=== PATIENT | male | born 1965 | race Caucasian/White ===

== ENCOUNTER 2016-12-27 23:45 | Emergency (ER) | payer BC ==
[~2016-12-27] VITALS: Ht 165.1 cm; Wt 114.5 kg
[2016-12-27 23:45] VITALS: TEMP 36.9; O2SAT 95; Ht 165.1 cm; Wt 114.5 kg
[~2016-12-27 23:45] MED LIST: BNC/4025 PO; FURO-85 PO; GEMF600T3 PO; LEVO150T PO; METO25TA3 PO; MINO1TAB PO
[2016-12-28] MEDS ORDERED: KETOROLAC TROMETHAMINE 30 MG/ML VIAL IV STA (00:13)
--- NOTE | 2016-12-28 00:20 | EMERGENCY ROOM VISIT NOTE ---
History Report prepared by Marcellus: Lyric Hoffmann Under the Supervision of: Dr. Tonie Paz D.O. First contact with patient: 23:51 Chief Complaint: CHEST PAIN Stated Complaint: CHEST PAIN Nursing Triage Summary: Pt arrived via ALS EMS from [facility]. Pt at work when he developed sudden onset, left sided chest tightness that radiated into left arm and created a "numbness". Pt describes pain as a "spasm". Rated 10/10. Pt also reported to be flushed and clammy. No SOB. IV access obtained by EMS. 324 ASA given. Recent hospital admission to [place] for CHF. History of Present Illness The patient is a 51 year old male who presents to the Emergency Room via ALS with complaints of sudden left sided chest pain that began just prior to arrival. He initially rated his discomfort as a 10/10 in severity, but notes that it is now a 3/10 in severity. The patient states that he arrived at work this evening around 2230 and was getting ready to get some equipment. He states that he suddenly began experiencing left sided chest pain that radiated into his left shoulder and left arm. He describes his discomfort as a muscle spasm and aching discomfort. The patient states that his left arm hurts when he moves it. He additionally notes that he felt clammy during the incident. He denies doing anything strenuous prior to his pain beginning. The patient states that one month ago he was evaluated at [facility] for congestive heart failure. He states that he had 12 pounds of fluid taken off of his body. The patient states that he had increased leg edema at this time. He states that he was experiencing uncontrolled hypertension, noting that he was on the wrong blood pressure medications. The patient denies any previous LA. He states that he had an echocardiogram that was normal. The patient additionally notes that he had a stress test on the treadmill three weeks ago that was normal. He denies any history of diabetes. EMS reports that the patient was given 324 of aspirin prior to arrival. The patient denies any abdominal pain or current leg cramping or swelling. Source of History: patient Onset: prior to arrival Position: chest (left) Symptom Intensity: 3/10 Quality: ache, other (muscle spasm) Timing: other (sudden) Associated Symptoms: No abdominal pain Note: Associated Symptoms: clammy Review of Systems See HPI for pertinent positives & negatives. A total of 10 systems reviewed and were otherwise negative. Past Medical & Surgical Medical Problems: (1) Asthma (2) Bronchitis (3) CHF (congestive heart failure) (4) Heart disease (5) Hypertension (6) Kidney disease (7) Pneumonia Surgical Problems: (1) H/O hand surgery Family History Cancer Heart disease Hypertension Kidney disease Kidney stones Lung disease Social History Smoking Status: Never Smoker Smokeless Tobacco Use: Yes Alcohol Use: occasionally Drug Use: none Marital Status: Housing Status: lives with significant other Occupation Status: employed Current/Historical Medications Scheduled Amlodipine (Norvasc), 10 MG PO DAILY Furosemide (Lasix), 20 MG PO DAILY Levothyroxine Sodium (Levothyroxine Sodium), 175 MCG PO DAILY Lisinopril (Zestril), 40 MG PO QPM Metoprolol Tartrate (Lopressor) (Lopressor), 50 MG PO BID Spironolactone (Aldactone), 25 MG PO DAILY Allergies Coded Allergies: No Known Allergies (Unverified , 12/28/16) Physical Exam Vital Signs Date Time Temp Pulse Resp B/P Pulse Ox O2 Delivery O2 Flow Rate FiO2 12/28/16 02:00 113/74 12/28/16 01:55 58 15 97 12/28/16 01:30 128/81 12/28/16 01:25 59 24 98 12/28/16 01:20 61 23 96 12/28/16 01:00 110/72 12/28/16 00:50 61 14 96 12/28/16 00:45 60 96 12/28/16 00:30 120/81 12/28/16 00:15 61 19 97 12/28/16 00:00 117/85 12/27/16 23:53 65 12/27/16 23:51 132/86 12/27/16 23:45 95 Room Air 12/27/16 23:45 36.9 64 14 153/103 95 Room Air 12/27/16 23:45 97 Room Air Physical Exam HEENT: Head - normocephalic and atraumatic Pupils are equal, round, and reactive to light. Extraocular eye muscles are intact, and sclera are anicteric. Nose - moist nasal mucosa without discharge. Mouth - moist buccal mucosa. Oropharynx is nonerythematous and there is no tonsillar exudate or edema noted. Neck: Supple; no JVD, nuchal rigidity, cervical lymphadenopathy. Heart: Regular rate and rhythm. There is a normal S1 and S2 with no murmurs, clicks, or gallops appreciated. Lungs: Clear to auscultation bilaterally with no wheezes, rales, or rhonchi. Abdomen: Soft, completely nontender, nondistended, with good bowel sounds. There are no palpable pulsatile masses or hepatosplenomegaly. There is no guarding, rigidity, or rebound noted. Extremities: No evidence of cyanosis, clubbing, or edema. There are easily palpable peripheral pulses. Skin: warm and dry with good turgor and no rashes. Medical Decision & Procedures ER Provider Diagnostic Interpretation: 1 view chest x-ray interpreted by me: narrow mediastinum, no cardiomegaly, no pulmonary infiltrates. Laboratory Results 12/27/16 23:53 12/27/16 23:53 Test 12/27/16 23:53 12/28/16 02:04 Red Blood Count 4.88 M/uL (4.7-6.1) Mean Corpuscular Volume 84.0 fL (80-100) Mean Corpuscular Hemoglobin 28.5 pg (25-34) Mean Corpuscular Hemoglobin Concent 33.9 g/dl (32-36) RDW Standard Deviation 40.4 fL (36.4-46.3) RDW Coefficient of Variation 13.2 % (11.5-14.5) Mean Platelet Volume 10.6 fL (7.4-10.4) Anion Gap 6.0 mmol/L (3-11) Est Creatinine Clear Calc Drug Dose 94.0 ml/min Estimated GFR () 90.2 Estimated GFR (Non- 77.9 BUN/Creatinine Ratio 16.7 (10-20) Calcium Level 9.0 mg/dl (8.5-10.1) Total Bilirubin 0.3 mg/dl (0.2-1) Direct Bilirubin < 0.1 mg/dl (0-0.2) Aspartate Amino Transf (AST/SGOT) 14 U/L (15-37) Alanine Aminotransferase (ALT/SGPT) 32 U/L (12-78) Alkaline Phosphatase 70 U/L (45-117) Total Protein 7.1 gm/dl (6.4-8.2) Albumin 3.9 gm/dl (3.4-5.0) Lipase 155 U/L (73-393) Bedside Troponin I 0.010 ng/ml (0-0.045) Laboratory results per my review. Medications Administered Medications (Trade) Dose Ordered Sig/Ubaldo Route Start Time Stop Time Status Last Admin Dose Admin Ketorolac Tromethamine (Toradol Inj) 30 mg NOW STAT IV 12/28/16 00:13 12/28/16 00:18 DC 12/28/16 00:31 30 MG ECG Indication: chest pain Rate (beats per minute): 69 Rhythm: normal sinus Findings: no acute ischemic change, no ectopy ED Course 0001: Past medical records reviewed. The patient was evaluated in room B4B. A complete history and physical exam was performed. An IV lock was initiated and labs are drones above. A twelve-lead EKG was obtained as described above. Patient had a portable chest x-ray as described above. 0013: Ordered Toradol Inj 30 mg IV. 0109: I reevaluated the patient and he is feeling fine. He has had no recurrence of his chest discomfort. He is going to have a repeat troponin ran at 0200. 0218: I reevaluated the patient and he is resting comfortably. I discussed all the exam findings with him and I discussed the treatment plan. He verbalized complete understanding and agreement. He is ready to go home. Medical Decision The patient is a 51 year old male who presents to the ED with left sided chest pain. Differential diagnosis includes recurrent congestive heart failure, acute coronary syndrome, STEMI, costochondritis, GERD Lab interpretation: point of care troponin 0, normal lipase and LFTs, normal glucose and renal function, no leukocytosis, stable H&H. Repeat point of care troponin 0.01. This is a 51-year-old male who presents to the emergency department with a sudden onset of left-sided chest wall pain that seemed to radiate through to his shoulder and left scapula. The patient describes pain as worsening with movement of that left arm and shoulder. The patient did have some reproducible discomfort with palpation over the medial aspect of the left scapula. The patient had a recent cardiac stress test which was negative. He has an EKG today that is normal. 2 troponins were within the normal range. The patient was told to follow-up with his home care companion on Saturday if the symptoms persist. If symptoms worsen, he can return here to the emergency department Impression Primary Impression: Left-sided chest wall pain Scribe Attestation The scribe's documentation has been prepared under my direction and personally reviewed by me in its entirety. I confirm that the note above accurately reflects all work, treatment, procedures, and medical decision making performed by me. Departure Information Dispostion Home / Self-Care Referrals No Doctor, Assigned (PCP) Forms HOME CARE DOCUMENTATION FORM, IMPORTANT VISIT INFORMATION Patient Instructions ED Chest Pain Atypical Unkn Cause, My [facility] Additional Instructions Rest. Limit strenuous activity or use of the left arm. Motrin - 800mg every 6 hours with food for pain as needed over 2 days Follow up with cardiology on Saturday if symptoms persist If symptoms worsen, return to the ER
[2016-12-28 00:25] LABS: MEAN CORPUSCULAR HEMOGLOBIN 28.5 pg (25-34); MEAN CORPUSCULAR HGB CONC 33.9 g/dl (32-36); MEAN PLATELET VOLUME 10.6 fL (7.4-10.4); PLATELET COUNT 253 K/uL (130-400); RED BLOOD COUNT 4.88 M/uL (4.7-6.1); WHITE BLOOD COUNT 10.66 K/uL (4.8-10.8)
[2016-12-28 00:43] LABS: ALT/SGPT 32 U/L (12-78); AST/SGOT 14 U/L (15-37); BLOOD UREA NITROGEN 18 mg/dl (7-18); BUN/CREATININE RATIO 16.7 (10-20); CARBON DIOXIDE 29 mmol/L (21-32); CHLORIDE 106 mmol/L (98-107); GLUCOSE 106 mg/dl (70-99); POTASSIUM 3.9 mmol/L (3.5-5.1); SODIUM 141 mmol/L (136-145)
[2016-12-28] MEDS ORDERED: LEVO175T3 PO (00:43)
[2016-12-28] MEDS ORDERED: LISI40TA PO (00:44)
[2016-12-28 00:45] LABS: ALKALINE PHOSPHATASE 70 U/L (45-117)
[2016-12-28] MEDS ORDERED: AMLO-114 PO (00:45)
[2016-12-28] MEDS ORDERED: SPIR25TA PO (00:46)
[2016-12-28] MEDS ORDERED: METO50TA16 PO (00:49)
[2016-12-28 01:55] VITALS: PULSE 58; O2SAT 97
[2016-12-28 02:00] VITALS: BP 113/74
--- NOTE | 2016-12-28 07:05 | DIAGNOSTIC IMAGING REPORT ---
CHEST ONE VIEW PORTABLE CLINICAL HISTORY: Left-sided chest pain. COMPARISON STUDY: Chest radiograph November 16, 2012. FINDINGS: Lung volumes are normal. There is no pneumothorax or pleural effusion. Lungs are clear. Cardiac size is normal. Mediastinal contours are normal. There is no evidence of pulmonary edema. IMPRESSION: No acute cardiopulmonary findings. Electronically signed by: Paul Carpenter M.D. 12/28/2016 7:03 AM Dictated Date/Time: 12/28/2016 7:03 AM
== END 2016-12-28 02:24 | disposition home or self-care (01) ==
LOC: EDBD 23:45 → C.EDB 23:46
DX: R07.89 Other chest pain (principal); I12.9 Hypertensive chronic kidney disease with stage 1 through stage 4 chronic kidney disease, or unspecified chronic kidney disease; N18.9 Chronic kidney disease, unspecified; I50.9 Heart failure, unspecified; I51.9 Heart disease, unspecified; J45.909 Unspecified asthma, uncomplicated; Z98.890 Other specified postprocedural states; Z79.899 Other long term (current) drug therapy; Z80.9 Family history of malignant neoplasm, unspecified; Z82.49 Family history of ischemic heart disease and other diseases of the circulatory system; Z84.1 Family history of disorders of kidney and ureter

== ENCOUNTER 2017-11-11 09:53 | Emergency (ER) | payer BC, OTHER ==
[~2017-11-11] VITALS: Ht 165.1 cm; Wt 112.8 kg
[~2017-11-11 09:53] MED LIST changes: +AMLO-114 PO; -BNC/4025 PO; -GEMF600T3 PO; -LEVO150T PO; +LEVO175T3 PO; +LISI40TA PO; -METO25TA3 PO; +METO50TA16 PO; -MINO1TAB PO; +SPIR25TA PO
[2017-11-11 10:03] VITALS: TEMP 36.8; Ht 165.1 cm; Wt 112.8 kg
[2017-11-11] MEDS ORDERED: DICLOFENAC SOD 1% GEL 100 GM TUBE EXT STA (10:42)
--- NOTE | 2017-11-11 11:08 | DIAGNOSTIC IMAGING REPORT ---
L SHOULDER MIN 2 VIEWS ROUTINE CLINICAL HISTORY: 52 years-old Male presenting with shoulder pain. TECHNIQUE: Internal rotation, external rotation, and Grashey views of the left shoulder were obtained. COMPARISON: Chest x-ray from 12/28/2016. FINDINGS: Glenohumeral and acromioclavicular joints congruent. Mild osteophytosis of the distal clavicle at the acromioclavicular joint. No acute fracture or malalignment. No deformity of the humeral head. Cystic change at the footplate of the rotator cuff at the greater tuberosity could suggest chronic impingement. No advanced degenerative change. No radiographic soft tissue abnormality. Visualized portion of the left hemithorax normal. IMPRESSION: 1. No acute osseous injury. 2. Mild degenerative change of the acromioclavicular joint. 3. Cystic change at the footplate of the rotator cuff could suggest chronic impingement. Electronically signed by: Nicko Anderson M.D. 11/11/2017 11:07 AM Dictated Date/Time: 11/11/2017 11:06 AM
[2017-11-11] MEDS ORDERED: DICL1GEL12 TOP (11:21)
--- NOTE | 2017-11-11 11:22 | EMERGENCY ROOM VISIT NOTE ---
ED Visit Note First contact with patient: 10:11 CHIEF COMPLAINT: Shoulder pain HISTORY OF PRESENT ILLNESS: This 52-year-old male patient presents to the emergency department, ambulatory, complaining of pain in the left shoulder which began while working 2 nights ago. The patient works at [employer], and states approximately 1:30 AM, he was lifting a stack of 8 chairs, and felt an immediate tearing sensation in his left shoulder. There is mild limitation of motion of the arm with abduction because of the pain. The pain is moderate, constant and increases with motion of the hand and arm. The patient states the pain is sharp and 7/10. The patient has taken nothing for relief of the pain. No previous significant previous shoulder disease or injury. No numbness or tingling. No neck or back pain. No chest pain or shortness of breath. No abdominal pain or nausea/vomiting. No cough. REVIEW OF SYSTEMS: A 6 system review of systems was performed with positives and pertinent negatives in the HPI. ALLERGIES: None MEDICATIONS: Lasix, Synthroid, lisinopril, Norvasc, Aldactone, Lopressor, statin PMH: CHF, hyperlipidemia SOCIAL HISTORY: The patient lives locally with family. He denies drug, alcohol use. He admits to chewing 1 can of tobacco every 1 and half days. PHYSICAL EXAM: Vital Signs: Reviewed nurse's notes, vital signs stable. GENERAL : This is a 52-year-old white male, in no acute distress, but appears to be in pain, well-developed, well-nourished. MUSCULOSKELETAL: There is no deformity in the contour of the left shoulder and there are no shayla deformities noted. There is no sulcus sign. There is tenderness over the deltoid. The patient's active range of motion is limited due to pain, however passive range of motion is full. Supraspinatus strength 5/5. There is no clavicle tenderness. No tenderness of the humerus, elbow, wrist, or hand. Internal Medicine Nurse strength 4/5. Radial pulse 2+. NECK: No tenderness to palpation over the cervical spine. Supple, no lymphadenopathy. HEART: Regular rate and rhythm without murmurs gallops or rubs. LUNGS: Clear to auscultation bilaterally without wheezes, rales or rhonchi. No accessory muscle use. No retractions. NEURO: The patient is alert and oriented to person, place, and time. Normal sensation to light and sharp touch. Capillary refill less than 2 seconds. RADIOLOGY: L SHOULDER MIN 2 VIEWS ROUTINE CLINICAL HISTORY: 52 years-old Male presenting with shoulder pain. TECHNIQUE: Internal rotation, external rotation, and Grashey views of the left shoulder were obtained. COMPARISON: Chest x-ray from 12/28/2016. FINDINGS: Glenohumeral and acromioclavicular joints congruent. Mild osteophytosis of the distal clavicle at the acromioclavicular joint. No acute fracture or malalignment. No deformity of the humeral head. Cystic change at the footplate of the rotator cuff at the greater tuberosity could suggest chronic impingement. No advanced degenerative change. No radiographic soft tissue abnormality. Visualized portion of the left hemithorax normal. IMPRESSION: 1. No acute osseous injury. 2. Mild degenerative change of the acromioclavicular joint. 3. Cystic change at the footplate of the rotator cuff could suggest chronic impingement. Electronically signed by: Nicko Anderson M.D. 11/11/2017 11:07 AM Dictated Date/Time: 11/11/2017 11:06 AM EMERGENCY DEPARTMENT COURSE: I examined the patient. An X-ray of the left shoulder was reviewed by myself and radiologist and shows mild degenerative change of the AC joint and cystic change at the footplate of the rotator cuff which could suggest chronic impingement. No obvious acute fracture or bony abnormality. I suspect the patient is experiencing a shoulder strain versus sprain, but did discuss with him the possibility of a rotator cuff tear. The patient will be treated at this time with Voltaren gel (which was applied here in the ED) due to his heart disease history and was encouraged to use a sling for comfort and immobilization until he is able to follow-up with orthopedics. He was encouraged to follow-up outpatient with orthopedics, and will contact his human resources department to discuss the appropriate providers. All questions were answered to the patient's satisfaction. Discharge instructions reviewed, the patient was discharged home in good condition. I attest that I have personally reviewed the patient's current medication list. Patient was found to have normal blood pressure on screening and does not require follow-up. Etiologies such as soft tissue injury, fracture, dislocation, neurovascular compromise, compartment syndrome, as well as others were entertained. DIAGNOSIS: Shoulder strain Problem List Medical Problems: (1) Asthma Status: Chronic (2) Bronchitis Status: Resolved (3) CHF (congestive heart failure) Status: Resolved (4) Heart disease Status: Chronic (5) Hypertension Status: Chronic (6) Kidney disease Status: Chronic (7) Pneumonia Status: Resolved Surgical Problems: (1) H/O hand surgery Status: Resolved Current/Historical Medications Scheduled Amlodipine (Norvasc), 10 MG PO DAILY Furosemide (Lasix), 20 MG PO DAILY Levothyroxine Sodium (Levothyroxine Sodium), 175 MCG PO DAILY Lisinopril (Zestril), 40 MG PO QPM Metoprolol Tartrate (Lopressor) (Lopressor), 50 MG PO BID Spironolactone (Aldactone), 25 MG PO DAILY Scheduled PRN Diclofenac Sodium (Topical) (Voltaren 1% Top Gel), 2 GM TOP QID PRN for Pain Allergies Coded Allergies: No Known Allergies (Unverified , 11/11/17) Vital Signs Date Time Temp Pulse Resp B/P (MAP) Pulse Ox O2 Delivery O2 Flow Rate FiO2 11/11/17 12:06 79 18 129/78 98 11/11/17 10:03 36.8 73 20 131/85 97 Room Air Medications Administered Medications (Trade) Dose Ordered Sig/Ubaldo Route Start Time Stop Time Status Last Admin Dose Admin Diclofenac Sodium (Voltaren 1% Top Gel) 1 appln NOW STAT EXT 11/11/17 10:42 11/11/17 10:44 DC 11/11/17 10:53 1 APPLN Departure Information Impression Primary Impression: Left shoulder strain Dispostion Home / Self-Care Condition GOOD Prescriptions Diclofenac Sodium (Topical) (VOLTAREN 1% TOP GEL) 1 % Gel 2 GM TOP QID Y for Pain, #1 TUBE Prov: Glo Hartman PA-C 11/11/17 Referrals Daniel Clancy D.O. (PCP) Patient Instructions ED Sprain Shoulder, [facility] Additional Instructions You have been treated in the Emergency Department for Shoulder Pain. You have been prescribed Voltaren gel to be used as directed for shoulder pain. For pain control, you can use the following [id number] medicines (if >12 yo): Acetaminophen(Tylenol) may be used for fever or pain. Use 1000mg every six to eight hours as needed. Avoid using more than 3000mg in a 24 hour period. If this is a recent injury (<24 hrs), ice can be applied to the area of pain for the first 3 days to help decrease pain and inflammation. You have been provided the number for an Orthopaedic Surgeon. You should call this number as soon as possible to establish a follow-up visit from today's Emergency Department visit. Keep the shoulder sling in place until evaluated by Orthopedics. You may be able to follow-up with Dr. Alvraez, however you should check with your human resources department to determine specific Worker's Comp. providers. Return to the Emergency Department if your current symptoms worsen despite treatment course outlined above, or if you develop any of the following symptoms : intractable pain despite aforementioned treatment course or new onset of numbness or tingling of the arm. Problem Qualifiers Primary Impression: Left shoulder strain Encounter type: initial encounter Qualified Codes: S46.912A - Strain of unspecified muscle, fascia and tendon at shoulder and upper arm level, left arm , initial encounter
[2017-11-11 12:06] VITALS: BP 129/78; PULSE 79; O2SAT 98
== END 2017-11-11 12:12 | disposition home or self-care (01) ==
LOC: C.EDB 09:54 → C.EDC 12:12
DX: S46.912A Strain of unspecified muscle, fascia and tendon at shoulder and upper arm level, left arm, initial encounter (principal); X50.0XXA Overexertion from strenuous movement or load, initial encounter; E78.5 Hyperlipidemia, unspecified; I50.9 Heart failure, unspecified; J45.909 Unspecified asthma, uncomplicated; I13.0 Hypertensive heart and chronic kidney disease with heart failure and stage 1 through stage 4 chronic kidney disease, or unspecified chronic kidney disease; N18.9 Chronic kidney disease, unspecified